=== PATIENT | male | born 1980 | race Caucasian/White ===

== ENCOUNTER 2017-11-07 04:29 | Emergency (ER) | payer OTHER ==
[~2017-11-07] VITALS: Ht 182.9 cm; Wt 83.9 kg
[2017-11-07] MEDS ORDERED: IBUPROFEN200 M1 PO (04:35)
[2017-11-07] MEDS ORDERED: PENICILLIN V P500 MG PO (04:52)
== END 2017-11-07 05:04 | disposition home or self-care (01) ==
LOC: ED 04:29
DX: K02.9 Dental caries, unspecified (principal); F17.200 Nicotine dependence, unspecified, uncomplicated
CPT/HCPCS: 99282